=== PATIENT | male | born 1960 | race Caucasian/White ===

== ENCOUNTER 2023-08-28 08:28 | Emergency (ER) | payer MEDICAID ==
[~2023-08-28] VITALS: Ht 172.7 cm; Wt 81.0 kg
[2023-08-28 08:48] VITALS: O2SAT 99
[2023-08-28] MEDS ORDERED: IBUP-2028 MT (10:56)
[2023-08-28 11:22] VITALS: BP 124/69; PULSE 70; RESP 18; TEMP 98.2
== END 2023-08-28 11:57 | disposition home or self-care (01) ==
LOC: ER 08:28
DX: S86.811A Strain of other muscle(s) and tendon(s) at lower leg level, right leg, initial encounter (principal); W18.30XA Fall on same level, unspecified, initial encounter; Y93.89 Activity, other specified; Y92.89 Other specified places as the place of occurrence of the external cause; Y99.8 Other external cause status
CPT/HCPCS: 73562; 73590; 93971; 99284